=== PATIENT | female | born 1980 | race Two or more races ===

== ENCOUNTER 2020-03-24 07:45 | Inpatient (IN) | payer OTHER ==
[~2020-03-24] VITALS: Ht 162.6 cm; Wt 61.7 kg
[2020-03-24] MEDS ORDERED: PRESERVISION L1 EACH PO (10:48)
[2020-03-24] MEDS ORDERED: MULTI-VITAMIN1 EACH PO (10:48)
[2020-04-04] MEDS ORDERED: CODE1TAB37 PO (14:34)
== END 2020-04-04 15:07 | DRG 743 ==
LOC: ADM 07:45 → EDSTATUS 07:45 → O/R 04-01 05:50 → OB/GYN 04-01 05:50
PROVIDERS: ADMIT Obstetrics & Gynecology; ATTEND Obstetrics & Gynecology
PROC: 0UJD4ZZ Inspection of Uterus and Cervix, Percutaneous Endoscopic Approach (ICD-10-PCS; 2020-04-01)
PROC: 0UQF4ZZ Repair Cul-de-sac, Percutaneous Endoscopic Approach (ICD-10-PCS; 2020-04-01)
PROC: 0TJB8ZZ Inspection of Bladder, Via Natural or Artificial Opening Endoscopic (ICD-10-PCS; 2020-04-01)
PROC: 0UT90ZZ Resection of Uterus, Open Approach (ICD-10-PCS; principal; 2020-04-01 13:30)
DX: D25.1 Intramural leiomyoma of uterus (principal); D25.0 Submucous leiomyoma of uterus; D25.2 Subserosal leiomyoma of uterus; N81.10 Cystocele, unspecified; N87.9 Dysplasia of cervix uteri, unspecified; N92.0 Excessive and frequent menstruation with regular cycle; N94.6 Dysmenorrhea, unspecified; Z53.31 Laparoscopic surgical procedure converted to open procedure